=== PATIENT | female | born 1955 | race Caucasian/White ===

== ENCOUNTER → 2016-05-27 | Outpatient (CLI) | payer OTHER ==
[~2016-05-27] MED LIST: ALPRAZOLAM PO; ALTACE PO; AVELOX400 M1 PO; BENADRYL; CLOTRIMAZOLE/BE15 G1 TP; COMBIVENT INH14.7 G1 IH; COMBIVENT INH14.7 GM INH; DESYREL100 MG PO; DICLOFENAC PO; DUONEB 2.5-0.5 M3 ML NEB; FLONASE16 GM; FLOXIN20 EA OP; IPRAT-ALBUT 0.5-3 ML IH; KCL PO; LIPITOR PO; LOPRESSOR PO; LORTAB 101 TAB 10/5 DOB; MEDROL4 MG/DOSE- PO; NASACORT AQ16.5 GM; OMEPRAZOLE20 M1 PO; PERCOCET10 PO; PLAVIX PO; PRILOSEC PO; PROTONIX PO; REMERON PO; REQUIP1 MG PO; REQUIP2 MG PO; REQUIP3 MG PO; TEMAZEPAM PO; TIZANIDINE HCL2 M1 PO; TIZANIDINE HCL4 M1 PO; TOBREX5 ML OP; TRICOR PO; VITAMIN D22000 UNIT PO; VOLTAREN75 MG PO; XOPENEX HFA15 GM NEB; XOPENEX1.25 MG/3 IH; ZANAFLEX PO; ZAROXYLYN PO; ZYRTEC PO; ZYRTEC10 M1 PO; [UNRECOGNIZED DRUG - OTHER] OP; [UNRECOGNIZED DRUG - OTHER] PO; [UNRECOGNIZED DRUG - OTHER] PO
--- NOTE | ~2016-05-27 | CR77 ---
[facility] A Service of [facility] & [facility] RADIOLOGY TEXT RESULTS PATIENT: BENNIE PAYTON LOCATION: [facility] : 53 UNIT #: [id number] AGE: [address]: Generic Doctor NOT IN SYSTEM SEX: F ORDER DR: [id number] [place], [place] [address] [id number] O MR#: [id number] Acc #: [id number] NAME: BENNIE PAYTON : 1955 SEX: F STUDY DATE/TIME: 05/27/2016 14:47 UNIT: [facility] ROOM: STUDY DESCRIPTION: CR Clavicle Comp Lt Attending Physician: Generic Doctor Not In System Referring Physician: Generic Doctor Not In System Primary Care Physician: Primary Care Physician No MEDICAL IMAGING REPORT This report is preliminary unless electronic signature is present EXAM Left clavicle 2 views INDICATION Left clavicle pain for 2 months COMPARISON No comparisons FINDINGS The alignment is normal and there is no fracture. There is no significant joint space narrowing. IMPRESSION Negative. Dictated by... Paddy Ye M.D. THIS IS AN ELECTRONICALLY VERIFIED REPORT Paddy Ye M.D. at 05/29/2016 9:06 AM Catrachito TD: 05/28/2016 11:13 JOB #: [id number] MEDICAL IMAGING REPORT Page 1 of 1 COPY
--- NOTE | ~2016-05-27 | CR229 ---
[facility] A Service of [facility] RADIOLOGY TEXT RESULTS PATIENT: BENNIE PAYTON LOCATION: [facility] : 53 UNIT #: [id number] AGE: [address]: Generic Doctor NOT IN SYSTEM SEX: F ORDER DR: [id number] [facility] [address] [place], [place] [address] [id number] O MR#: [id number] Acc #: [id number] NAME: BENNIE PAYTON : 1955 SEX: F STUDY DATE/TIME: 05/27/2016 14:46 UNIT: [facility] ROOM: STUDY DESCRIPTION: CR Shoulder Min 2 View Lt Attending Physician: Generic Doctor Not In System Referring Physician: Generic Doctor Not In System Primary Care Physician: No Primary Care Physician MEDICAL IMAGING REPORT This report is preliminary unless electronic signature is present EXAM Left shoulder 3 views INDICATION 60-year-old female with left shoulder pain for 2 months. COMPARISON No comparisons. FINDINGS No fracture or dislocation. Joint spaces are preserved. Soft tissue structures are unremarkable. Catheter tubing noted on the right side of the chest. IMPRESSION Negative shoulder. Dictated by... Paddy Ye M.D. THIS IS AN ELECTRONICALLY VERIFIED REPORT Paddy Ye M.D. at 05/29/2016 9:06 AM PELON/brenda TD: 05/28/2016 11:45 JOB #: [id number] MEDICAL IMAGING REPORT Page 1 of 1 COPY
[2016-05-27 20:21] LABS: POC - CREATININE 1.25 mg/dL (0.44-1.03)
== END | disposition home or self-care (01) ==
LOC: CCAT 13:16
DX: M25.512 Pain in left shoulder (principal)
CPT/HCPCS: 73000; 73030; 82565

== ENCOUNTER → 2016-06-05 | Outpatient (CLI) | payer OTHER ==
--- NOTE | ~2016-06-05 | CT14 ---
[facility] A Service of [facility] RADIOLOGY TEXT RESULTS PATIENT: BENNIE PAYTON [facility] UNIT #: [id number] AGE: [address]: MONICA LORENZ SEX: F ORDER DR: [id number] [facility] [address] [place], [place] [address] [id number] O MR#: [id number] Acc #: [id number] NAME: BENNIE PAYTON : 1955 SEX: F STUDY DATE/TIME: 06/05/2016 14:11 UNIT: [facility] ROOM: STUDY DESCRIPTION: CT Angio Abdomen and Pelvis Attending Physician: Monica Lorenz Referring Physician: Monica Lorenz Ordering Physician: Physician Non-Staff Primary Care Physician: Grace Mosqueda Aprn MEDICAL IMAGING REPORT This report is preliminary unless electronic signature is present EXAM CT abdomen and pelvis with contrast with aortic CT angiography HISTORY Lower abdominal pain and groin pain for the past 5 years. COMPARISON 08/26/2012 TECHNIQUE Axial imaging was obtained through the abdomen and pelvis with contrast. 100 mL of Isovue was used. Aortic CT angiography was performed with thick sliding MIPs, curved planar reformats and 3-D volumetric imaging with surface shaded and volume shaded display. This CT exam was performed with one or more of the following radiation dose reduction techniques: automatic exposure control, adjustment of mA and/or kV according to patient size, and iterative reconstruction. FINDINGS Extravascular structures are remarkable for tiny renal cysts. There is a small duodenal diverticulum. The CT angiographic study shows atherosclerotic changes in the abdominal aorta that are fairly extensive. At the aortic bifurcation there is plaque projecting into the lumen narrowing the lumen by about 75%. The right common iliac artery is also narrowed by about 50%. There is no evidence of abdominal aortic aneurysm. There is calcified plaque at the mesenteric origins without stenosis. The left renal artery is widely patent. The right renal artery is about 50% narrowed near its origin secondary to soft and calcified plaque. IMPRESSION [facility] A Service of [facility] RADIOLOGY TEXT RESULTS PATIENT: BENNIE PAYTON LOCATION: [facility] : 54 UNIT #: [id number] AGE: [address]: MONICA LORENZ SEX: F ORDER DR: 1. Extensive atherosclerotic disease of the aorta without aneurysm. Severe stenosis at the distal aorta just above the bifurcation of at least 75%. 2. Approximately 50% right renal artery stenosis just beyond the origin. Dictated by... Triston Thacker M.D. THIS IS AN ELECTRONICALLY VERIFIED REPORT Triston Thacker M.D. at 06/06/2016 1:05 PM Hossein TD: 06/06/2016 09:16 JOB #: [id number] MEDICAL IMAGING REPORT Page 1 of 1 COPY
[2016-06-05 14:40] LABS: POC - CREATININE 1.22 mg/dL (0.44-1.03)
== END | disposition home or self-care (01) ==
LOC: CCAT 11:27
PROVIDERS: Obstetrics & Gynecology
DX: R10.2 Pelvic and perineal pain (principal); R10.32 Left lower quadrant pain; R10.31 Right lower quadrant pain; N94.10 Unspecified dyspareunia; I70.0 Atherosclerosis of aorta; I35.0 Nonrheumatic aortic (valve) stenosis; I70.1 Atherosclerosis of renal artery
CPT/HCPCS: 74174; 82565; 96360; 96361; J1642; Q9967

== ENCOUNTER 2016-09-05 13:48 | Emergency (ER) | payer OTHER ==
--- NOTE | ~2016-09-05 | CT71 ---
[facility] A Service of [facility] RADIOLOGY TEXT RESULTS PATIENT: BENNIE PAYTON LOCATION: [facility] : 53 UNIT #: [id number] AGE: [address]: Mariann Hays MD SEX: F ORDER DR: [id number] [facility]. [place], [place] [address] [id number] E MR#: [id number] Acc #: [id number] NAME: BENNIE PAYTON : 1955 SEX: F STUDY DATE/TIME: 09/05/2016 16:34 UNIT: [facility] ROOM: STUDY DESCRIPTION: CT Head Wo Contrast Attending Physician: Mariann Hays M.D. Ordering Physician: Mariann Hays M.D. Primary Care Physician: [facility] MEDICAL IMAGING REPORT This report is preliminary unless electronic signature is present EXAM Noncontrast head CT HISTORY Headaches times 3 days pain in temporal region radiating into left orbit x3 days COMPARISON 11/27/[address] exam was performed with one or more of the following radiation dose reduction techniques: automatic control, adjustment of mA and/or kV according to patient size, and iterative reconstruction. FINDINGS Axial noncontrast images were obtained from the skull base to the vertex. Ventricular size and configuration are normal. There is no evidence of acute infarct or hemorrhage. There are no extra-axial fluid collections. No mass lesion or mass effect is seen. There are no skull fractures. IMPRESSION Normal noncontrast head CT. Dictated by... Maribeth Ye M.D. THIS IS AN ELECTRONICALLY VERIFIED REPORT Maribeth Ye M.D. at 09/06/2016 7:27 AM CALISTA/albert TD: 09/05/2016 20:18 [facility] A Service of [facility] RADIOLOGY TEXT RESULTS PATIENT: BENNIE PAYTON LOCATION: [facility] : 53 UNIT #: [id number] AGE: [address]: Mariann Hays MD SEX: F ORDER DR: JOB #: [id number] MEDICAL IMAGING REPORT Page 1 of 1 COPY
[2016-09-05 17:25] LABS: BASOPHIL% 0.4 % (0-2.5); EOSINOPHIL# 0.2 X10e3 (0-0.7); EOSINOPHIL% 1.7 % (0.0-7.0); HEMATOCRIT 38.8 % (35.0-45.0); HEMOGLOBIN 12.7 gm/dL (12.0-16.0); LYMPHOCYTE# 4.1 X10e3 (1.0-3.5); LYMPHOCYTE% 41.6 % (17.0-45.0); MEAN CORPUSCULAR HEMOGLOBIN 30.5 PG (28-34); MEAN CORPUSCULAR HGB CONC 32.8 g/dL (30-36); MEAN PLATELET VOLUME 8.4 FL (6.5-11.5); MONOCYTE# 0.6 X10e3 (0-1.0); MONOCYTE% 6.2 % (3.0-12.0); NEUTROPHIL# 4.9 X10e3 (1.5-7.1); NEUTROPHIL% 50.1 % (40-75); PLATELET COUNT 204 X10e3 (140-420); RED BLOOD COUNT 4.17 X10e (3.90-5.30); RED CELL DISTRIBUTION WIDTH 13.5 % (11.0-15.5); WHITE BLOOD COUNT 9.9 X10e3 (4.0-10.5)
[2016-09-05 17:26] LABS: POC - CKMB <1.0 ng/mL (0.0-7.9); POC - TROPONIN <0.05 ng/mL (<=0.05)
[2016-09-05 17:27] LABS: DIFF IND NO
[2016-09-05 17:41] LABS: CALCIUM SERUM 7.9 mg/dL (8.4-10.2); GLOM FILT RATE Estimated 60.4 mL/min (>60); POTASSIUM 3.8 mmol/L (3.5-5.1)
== END 2016-09-05 17:10 | disposition home or self-care (01) ==
LOC: CED 13:48
PROVIDERS: Student in an Organized Health Care Education/Training Program
DX: G89.29 Other chronic pain (principal); R51 Headache; I12.9 Hypertensive chronic kidney disease with stage 1 through stage 4 chronic kidney disease, or unspecified chronic kidney disease; N18.9 Chronic kidney disease, unspecified; J44.9 Chronic obstructive pulmonary disease, unspecified; K21.9 Gastro-esophageal reflux disease without esophagitis; I25.2 Old myocardial infarction; Z98.51 Tubal ligation status; Z88.0 Allergy status to penicillin; Z88.2 Allergy status to sulfonamides; Z91.013 Allergy to seafood; Z88.6 Allergy status to analgesic agent; Z91.040 Latex allergy status
CPT/HCPCS: 36415; 70450; 80048; 82553; 84484; 85025; 85652; 96361; 96374; 96375; 99284; J1642; J2270; J2405

== ENCOUNTER → 2016-10-04 | Outpatient (CLI) | payer OTHER ==
--- NOTE | ~2016-10-04 | CT14 ---
[facility] A Service of [facility] & [facility] RADIOLOGY TEXT RESULTS PATIENT: [facility]ENNIE PAYTON [facility] UN[facility] #: [id number] AGE: [address]: JOEY CLIFTON MD SEX: F ORDER DR: [id number] [facility] [address] [place], [place] [address] [id number] O MR#: [id number] Acc #: [id number] NAME: BENNIE PAYTON. : 1955 SEX: F STUDY DATE/TIME: 10/04/2016 14:04 UNIT: [facility] ROOM: STUDY DESCRIPTION: CT Angio Abdomen and Pelvis Attending Physician: Joey Clifton M.D. Referring Physician: Joey Clifton M.D. Ordering Physician: Joey Clifton M.D. MEDICAL IMAGING REPORT This report is preliminary unless electronic signature is present EXAM CT angiogram of abdomen and pelvis HISTORY Renal artery stenosis. This is a follow-up examination when compared to the patient's exam from 10/05/2016 where the patient is noted to have a 50% stenosis at the right renal artery. TECHNIQUE Axial CT imaging was obtained of the diaphragm to the symphysis pubis following administration of contrast material. Following this, 3-D reformatted images were obtained. This CT exam was performed with one or more of the following radiation dose reduction techniques: automatic exposure control, adjustment of mA and/or kV according to patient size, and iterative reconstruction. FINDINGS Images through the lung bases demonstrate some bibasilar atelectasis. Patient is noted have some reflux of contrast material into the hepatic veins, can be seen in the setting of right-sided heart failure. Please correlate with clinical presentation. Spleen, stomach, adrenal glands and gallbladder all appear unremarkable as are the pancreas and liver. Patient does have a duodenal diverticulum. Tiny low-attenuation lesions are seen within both kidneys favored to represent cysts. Mild narrowing suspected at the origin of the celiac axis. More significant narrowing suspected at the origin of the superior mesenteric artery, I would grade this stenosis at around the 40% to 50%. Single renal arteries are identified bilaterally. I think the left renal artery is widely patent and again the patient is noted to have some atherosclerotic involvement of the proximal right renal artery. As was discussed on the prior examination, I [facility] A Service of [facility] RADIOLOGY TEXT RESULTS PATIENT: BENNIE PAYTON LOCATION: [facility] : 53 UNIT #: [id number] AGE: [address]: JOEY CLIFTON MD SEX: F ORDER DR: would estimate this stenosis is probably in the range of about 50%. Additional narrowing suspected at the origin of the inferior mesenteric artery. Atherosclerotic plaque becomes more confluent within the infrarenal segment, does extend into the origins of the common iliac arteries bilaterally. I do think there is probably some mild eccentric narrowing involving the proximal right common iliac artery and some additional mild eccentric narrowing of the proximal left common iliac artery, it does remain patent and no significant stenosis of the patient's external iliac arteries is seen. Concentric plaque seen within the common femoral arteries bilaterally. Both visualized superficial femoral and profunda femoris arteries appear to be patent. There is no evidence mechanical bowel obstruction. Uterus appears unremarkable as is the urinary bladder. No free fluid or adenopathy is seen within the pelvis. Patient has some sparse colonic diverticula without any convincing evidence of diverticulitis. Review of bony windows does not demonstrate any aggressive osseous abnormalities. IMPRESSION 1. Atherosclerotic involvement of the abdominal aorta with extension into the origins of visceral vessels and into the proximal common iliac arteries. I think there is probably stable moderate stenosis of the proximal right renal artery in the range of about 50% with some [id number] stenosis at the superior mesenteric artery also noted. Mild stenosis is suspected at the origin of the celiac axis. I suspect there is probably also some narrowing at the origin of the inferior mesenteric artery which is really not possible to assess due to its small size. 2. Reflux of contrast material is seen into the hepatic veins. This appearance is nonspecific but can be seen in the setting of right-sided heart failure. Please see the body of the report for any other additional incidental findings. Dictated by... Delmis Urban M.D. THIS IS AN ELECTRONICALLY VERIFIED REPORT Delmis Urban M.D. at 10/09/2016 4:21 PM AFF/pcl TD: 10/07/2016 22:50 JOB #: [id number] MEDICAL IMAGING REPORT Page 1 of 1 COPY
[2016-10-04 18:40] LABS: POC - CREATININE 1.05 mg/dL (0.44-1.03)
== END | disposition home or self-care (01) ==
LOC: CCAT 10-03 10:30
PROVIDERS: Surgery Vascular Surgery
DX: I70.1 Atherosclerosis of renal artery (principal); I70.0 Atherosclerosis of aorta; K55.1 Chronic vascular disorders of intestine
CPT/HCPCS: 74174; 82565; J1642; Q9967

== ENCOUNTER → 2016-10-18 | Outpatient (CLI) | payer OTHER ==
--- NOTE | ~2016-10-18 | CT102 ---
[facility] A Service of [facility] RADIOLOGY TEXT RESULTS PATIENT: BENNIE PAYTON LOCATION: [facility] : 54 UNIT #: [id number] AGE: [address]: Waqar Connors MD SEX: F ORDER DR: [id number] [place], [place] [address] [id number] O MR#: [id number] Acc #: [id number] NAME: BENNIE PAYTON : 1955 SEX: F STUDY DATE/TIME: 10/18/2016 15:45 UNIT: [facility] ROOM: STUDY DESCRIPTION: CT Orbits W Contrast Attending Physician: Wesley Connors M.D. Referring Physician: Wesley Connors M.D. Ordering Physician: Wesley Connors M.D. Primary Care Physician: Saniya Parr A.P.R.N. MEDICAL IMAGING REPORT This report is preliminary unless electronic signature is present EXAM Orbit CT with contrast DATE OF STUDY 10/18/2016 PROCEDURE Axial contrast-enhanced orbit CT with multiplanar reformats. This CT exam was performed with one or more of the following radiation dose reduction techniques: Automatic exposure control, adjustment of mA and/or kV according to patient size, and iterative reconstruction. COMPARISON Head CT 09/05/2016. CLINICAL HISTORY Left eye pain for 2 months. FINDINGS The globes, bony orbital margins, intra- and extraconal fat and lacrimal glands are normal bilaterally. The intracranial and extraorbital soft tissues are normal. The adjacent paranasal sinuses are normally pneumatized and aerated. IMPRESSION Normal contrast-enhanced orbit CT. STAT * RESULT Dictated by... Milton Ortiz M.D. [facility] A Service of [facility] RADIOLOGY TEXT RESULTS PATIENT: BENNIE PAYTON LOCATION: [facility] : 53 UNIT #: [id number] AGE: [address]: Waqar Connors MD SEX: F ORDER DR: THIS IS AN ELECTRONICALLY VERIFIED REPORT Milton Ortiz M.D. at 10/24/2016 4:54 PM TEV/aa TD: 10/22/2016 14:19 JOB #: [id number] MEDICAL IMAGING REPORT Page 1 of 1 COPY
[2016-10-18 15:31] LABS: POC - CREATININE 1.09 mg/dL (0.44-1.03)
== END | disposition home or self-care (01) ==
LOC: CCAT 10-17 14:30 → CLAB 13:53 → CCAT 13:53
PROVIDERS: Ophthalmology
DX: H57.12 Ocular pain, left eye (principal); H25.13 Age-related nuclear cataract, bilateral
CPT/HCPCS: 36415; 70481; 82565; 85652; 86140; J1642; Q9967